=== PATIENT | male | born 1945 | race Hispanic/Latino ===

== ENCOUNTER → 2017-04-23 | Outpatient (CLI) | payer OTHER ==
[~2017-04-23] MED LIST: REGADENOSON 0.4 MG/5 ML PF SYG IVP ONE; REGADENOSON 0.4 MG/5 ML PF SYG IVP SCH
== END | disposition home or self-care (01) ==
LOC: SHCH 04-22 08:30
PROVIDERS: ATTEND Internal Medicine Cardiovascular Disease
DX: Z01.818 Encounter for other preprocedural examination (principal); R06.00 Dyspnea, unspecified; R11.0 Nausea
CPT/HCPCS: 78452; 93017; 96374; A9500 ×2; J2785

== ENCOUNTER → 2023-07-29 | Outpatient (CLI) | payer OTHER ==
[2023-07-29 12:41] LABS: CREATININE 1.7 mg/dL (0.5-1.3); POTASSIUM 3.8 mmol/L (3.5-5.1)
== END | disposition home or self-care (01) ==
LOC: LAB 08:57
PROVIDERS: ATTEND Internal Medicine Cardiovascular Disease
DX: I50.42 Chronic combined systolic (congestive) and diastolic (congestive) heart failure (principal)
CPT/HCPCS: 36415; 80048

== ENCOUNTER → 2023-08-19 | Outpatient (CLI) | payer OTHER ==
[2023-08-19] MEDS: REGADENOSON 0.4 MG/5 ML PF SYG IVP ONE (11:26)
== END | disposition home or self-care (01) ==
LOC: SHCH 09:03
PROVIDERS: ATTEND Internal Medicine Cardiovascular Disease
DX: I49.3 Ventricular premature depolarization (principal); I48.0 Paroxysmal atrial fibrillation; R00.0 Tachycardia, unspecified; I42.9 Cardiomyopathy, unspecified
CPT/HCPCS: 78452; 96374; 93017; J2785; A9500 ×2

== ENCOUNTER → 2023-09-07 | Outpatient (CLI) | payer OTHER | END | disposition home or self-care (01) | LOC: SHCH 11:06 | PROVIDERS: ATTEND Internal Medicine Cardiovascular Disease | DX: I48.0 Paroxysmal atrial fibrillation (principal); R00.0 Tachycardia, unspecified; I42.9 Cardiomyopathy, unspecified | CPT/HCPCS: 93306 ==

== ENCOUNTER 2024-01-02 08:10 | Day surgery (SDC) | payer OTHER ==
[2023-12-31 11:38] LABS: BASOPHILS # (AUTO) 0.06 K/uL (0.00-0.20); BASOPHILS % (AUTO) 0.7 % (0.0-5.0); EOSINOPHILS # (AUTO) 0.12 K/uL (0.00-0.70); EOSINOPHILS % (AUTO) 1.5 % (0.0-8.0); HEMATOCRIT 45.7 % (42-54); IMMATURE GRANULOCYTE ABSOLUTE 0.01 K/uL (0-1); LYMPHOCYTES # (AUTO) 2.6 K/uL (1.0-4.8); LYMPHOCYTES % (AUTO) 31.7 % (21.0-51.0); MEAN CORPUSCULAR HEMOGLOBIN 29.2 pg (27.0-33.0); MEAN CORPUSCULAR HGB CONC 33.5 g/dL (32.0-36.0); MEAN CORPUSCULAR VOLUME 87.2 fL (79-99); MONOCYTES # (AUTO) 0.6 K/uL (0.1-1.0); MONOCYTES % (AUTO) 7.3 % (3.0-13.0); NEUTROPHILS # (AUTO) 4.9 K/uL (1.8-7.7); NEUTROPHILS % (AUTO) 58.7 % (40.0-77.0); PLATELET COUNT (AUTO) 205 K/uL (130-400); RED BLOOD CELL COUNT(AUTO) 5.24 MIL/uL (4.50-6.20); RED CELL DISTRIBUTION WIDTH 14.1 % (11.0-15.5); WHITE BLOOD COUNT (AUTO) 8.3 K/uL (4.8-10.8)
[2023-12-31 11:46] LABS: CREATININE 1.5 mg/dL (0.5-1.3); POTASSIUM 4.4 mmol/L (3.5-5.1)
[2023-12-31 11:50] LABS: INR 1.08 (0.85-1.15); PROTHROMBIN TIME 11.6 SEC (9.6-11.6)
[2023-12-31 11:52] LABS: PARTIAL THROMBOPLASTIN TIME 27.4 SEC (26.3-35.5)
[2023-12-31 12:04] LABS: B-TYPE NATRIURETIC PEPTIDE 456 pg/mL (0-100)
[2023-12-31 12:09] VITALS: BP 142/86; PULSE 76; RESP 20; TEMP 98.2
[2023-12-31 12:11] LABS: APPEARANCE,URINE CLEAR (CLEAR); BILIRUBIN,URINE NEGATIVE (NEGATIVE); COLOR,URINE YELLOW (YELLOW); GLUCOSE, URINE (UA) 30 mg/dL (NEGATIVE); KETONES,URINE 5 mg/dL (NEGATIVE); LEUKOCYTE ESTERASE ,URINE NEGATIVE Leu/uL (NEGATIVE); NITRATE,URINE NEGATIVE (NEGATIVE); OCCULT BLOOD,URINE NEGATIVE (NEGATIVE); PROTEIN,URINE 100 mg/dL (NEGATIVE)
[2023-12-31 12:25] LABS: ADD UA MICROSCOPIC YES
[2023-12-31 12:31] LABS: MUCUS,URINE FEW LPF (None Seen); RBC,URINE 0-1 /HPF (0-1); SQUAMOUS EPITHELIAL CELL,UR RARE /HPF (0-2)
--- NOTE | 2023-12-31 12:39 | EKG ---
[facility] Test Date: 2023-12-31 Test Time: 12:07:10 Pat Name: ALVIN PHAM Department: [facility] Patient ID: [id number] Room: Gender: M [employer]phalt [employer]er: [id number] : 1945 Requested By: GILLES ALVAREZ Order Number: [id number] Reading MD: Azul Perez Measurements Intervals Gould Rate: 99 P: 0 NE: 0 QRS: 23 QRSD: 104 T: -80 QT: 375 QTc: 483 Interpretive Statements Atrial fibrillation Ventricular premature complex No previous ECG available for comparison Electronically Signed On 01-01-2024 05:14:41 BLOOD BANK ASSISTANT by Azul Perez Please click the below link to view image of tracing.
--- NOTE | 2023-12-31 12:42 | HMCIMG ---
CHEST 1VW REASON: PRE OP COMPARISON: None. FINDINGS: Single view of the chest was obtained. Lungs are clear. Heart size is normal. There is no pulmonary vascular congestion. Mediastinum and bony thorax appear unremarkable. IMPRESSION: 1. Normal single view chest x-ray.
--- NOTE | 2023-12-31 14:47 | NUR ---
REPORT INFORMED NIRAV BARNES NP PT LAST TOOK ELIQUIS ON 12/27 1899. OK TO PROCEED AND PT TO CONTINUE TO HOLD ELIQUIS. PT AWARE
--- NOTE | 2024-01-01 10:48 | NUR ---
RE: LABS REPORTED NA 146, BUN 17, CREAT 1.5 TO CHERELLE PENDLETON. RECEIVED ORDERS TO INSTRUCT PATIENT TO HYDRATE TODAY BEFORE PROCEDURE TOMORROW.
[2024-01-02] VITALS (10 sets, daily range): BP systolic 130–144; BP diastolic 82–102; PULSE 76–100; RESP 11–22; TEMP 96.6–97.3
[~2024-01-02] VITALS: Ht 170.2 cm; Wt 89.7 kg
[~2024-01-02 08:10] MED LIST changes: +APIX5TAB PO; +CHOL4POW4 PO; +GLIP10TA16 PO; +INSU3INS3 SQ; +METF-446 PO; +METO-409 PO; +NOVOLOG SQ; -REGADENOSON 0.4 MG/5 ML PF SYG IVP ONE; -REGADENOSON 0.4 MG/5 ML PF SYG IVP SCH; +SACU1TAB PO
[2024-01-02] MEDS: 0.9%NACL 1000ML 1,000 ML IV ONE (09:11)
[2024-01-02] MEDS ORDERED: IOHEXOL 350 MG/ML 100ML INFUS..BTL IV ONE (10:39)
[2024-01-02] MEDS ORDERED: IOHEXOL-350 50ML VIAL IV ONE (10:39)
[2024-01-02] MEDS ORDERED: MIDAZOLAM HCL 1 MG/ML 2ML VIAL ONE (10:39)
[2024-01-02] MEDS ORDERED: FENTanyl CITRate PF 50 MCG/1 ML 2ML VIAL ONE (10:39)
[2024-01-02] MEDS ORDERED: LIDOCAINE HCL 400MG/20ML VIAL ONE (10:39)
[2024-01-02] MEDS ORDERED: HEParin-NS 1,000 UNIT/500 ML 1,000 ML IV ONE (10:40)
[2024-01-02] MEDS ORDERED: HEParin 10,000 UNIT/10ML (1,000 UNIT/ML) VIAL ONE (10:40)
[2024-01-02] MEDS ORDERED: NITROGLYCERIN 50MG VIAL ONE (10:40)
[2024-01-02] MEDS ORDERED: metoPROLOL tartRATE 1 MG/ML 5ML VIAL IV ONE ×2 (11:10→11:31)
[2024-01-02] MEDS: 0.9%NACL 1000ML 1,000 ML IV SCH (11:57)
[2024-01-02] MEDS ORDERED: GLUCAGON 1MG KIT 1 MG ML IM PRN (12:30)
[2024-01-02] MEDS ORDERED: DEXTROSE 50%-WATER 50 ML DISP.SYRIN IV PRN (12:30)
--- NOTE | 2024-01-02 12:33 | PRN ---
DATE OF PROCEDURE: 01/02/2024 PROCEDURE PERFORMED: LEFT HEART CATHETERIZATION, LEFT VENTRICULOGRAM, LEFT AND RIGHT SELECTIVE CORONARY ANGIOGRAM, IFR OF THE LAD, RIGHT COMMON FEMORAL ANGIOGRAM, PERCLOSE SUTURE CLOSURE OF THE RIGHT COMMON FEMORAL ARTERY, AND CONSCIOUS SEDATION SNOW REMOVAL SUPERVISOR: GILLES ALVAREZ MD, [facility] INDICATION: MARKED DECLINE IN LV FUNCTION FROM AN LVEF OF 40-45% BY 2D ECHO DECEMBER 07, 2016 TO AN LVEF OF 25-30% BY 2D ECHO 09/07/2023. FIXED INFERIOR, INFEROLATERAL, AND INFEROAPICAL DEFECT BY LEXISCAN CARDIOLITE STRESS TEST 08/19/2023 WITH NO REVERSIBLE ISCHEMIA IDENTIFIED. PROCEDURE NOTE: After informed consent was obtained the patient was prepped and draped in the usual sterile fashion. A 6 Urdu arterial sheath was inserted in the right femoral artery using micropuncture technique with ultrasound guidance with a front wall, first pass puncture. This was performed after fluoroscopic identification of bony landmarks to facilitate a more accurate puncture of the right common femoral artery. The arterial sheath was aspirated and flushed. A 6 Urdu pigtail catheter was then advanced over a J-tipped guidewire to the ascending aorta and was prolapsed into the left ventricle. The catheter was aspirated and flushed and pressure measurements were obtained. A left ventriculogram was then performed in a 30 HALE projection. A pullback procedure was then performed, and this catheter was removed over a J-tipped guidewire. A 6F JL-4 was then advanced to the ascending aorta over a J-tipped guidewire, was aspirated and flushed, and was used for selective left coronary angiograms in multiple obliquities. A 6 Urdu JR-4 was advanced in a similar fashion to the ascending aorta over a J-tipped guidewire and was used for selective right coronary angiograms in multiple obliquities with findings as outlined below. An intermediate 60-70% eccentric proximal LAD stenosis just prior to the bifurcation with the diagonal one was noted of uncertain physiologic significance. IFR was performed with multiple readings of 0.99, 0.98, 0.99, and 1.0 were obtained with no significant drift. A right common femoral angiogram was performed to assess suitability for Perclose suture closure and the Perclose device was deployed in standard fashion. Perclose suture closure was successful without bleeding or hematoma. The patient tolerated the procedure well and was returned to the holding area in stable condition. FINDINGS: LEFT HEART HEMODYNAMICS: The LVEDP was 18 mm of mercury. No LV-gram was performed. There was no aortic valve gradient on pullback procedure. LEFT VENTRICULOGRAM: A left ventriculogram was not performed because of the presence of chronic renal insufficiency with serum creatinine of 1.5. A 2D echocardiogram 09/07/2023 demonstrated severe global hypokinesis, an LVEF of 25-30%, and stage III diastolic dysfunction. CORONARY ANGIOGRAM: LEFT MAIN: The left main had a 20% tubular ostial stenosis and a 30% tubular distal stenosis. There was no dampening or ventricularization of the pressure waveform. LEFT ANTERIOR DESCENDING: The left anterior descending had a 40% ostial and 60-70% proximal stenosis just prior to the bifurcation from a large diagonal branch. IFR determinations were 0.99, 0.98, 0.99, and 1.0. The ongoing mid and distal LAD were normal. The 1st diagonal branch had a 30% stenosis proximally. The 2nd diagonal was small and normal. There was a 99% stenosis on a tiny branch of the 1st diagonal branch. LEFT CIRCUMFLEX: The left circumflex was nondominant and normal. The OM1 had a 30% proximal stenosis in the OM2 was normal. RAMUS INTERMEDIATE BRANCH: There was no ramus intermediate branch. RIGHT CORONARY ARTERY: There was a 40% stenosis in the proximal RCA just prior to the 1st of two overlapping stents in the proximal to distal RCA. There were two overlapping widely patent 4.0 x 30 mm and 4.0 x 30 mm Medtronic Resolute drug-eluting stents from 07/11/2013 acute AR intervention. The distal RCA, PDA, and posterolateral branches were normal. 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 Chronic severe systolic and diastolic congestive heart failure, with grade 3 diastolic dysfunction noted on 2D echo 09/07/2023. Remote inferolateral AR 07/12/2023 with widely patent overlapping 4.0 x 30 mm and 4.0 x 30 mm Medtronic resolute integrity drug-eluting stents in the proximal to distal RCA. 60-70% eccentric proximal LAD stenosis with IFR of 0.99. RECOMMENDATION: Optimize medical therapy for CHF. Unfortunately the patient has been intolerant of Farxiga and spironolactone, consider a repeat trial of these medications. Advanced metoprolol succinate ER to 150 mg as the patient has had resting heart rates in the 90 to 100 beat per minute range in the phlebotomist medical lab assistant and at home per his report. Continue risk factor modification. The patient is not on statin therapy for unclear reasons and this will be introduced with rosuvastatin 20 mg daily. COMPLICATIONS OF PROCEDURE: None, the patient tolerated the procedure well and was returned to his room in stable condition. HEMOSTASIS: Perclose suture closure was successful without bleeding or hematoma. ESTIMATED BLOOD LOSS: 5 mL. CONTRAST TOTAL: 90 mL. GILLES ALVAREZ MD Jan 02, 2024 12:32
--- NOTE | 2024-01-02 15:00 | NUR ---
urinary: voided 300 cc dark yellow color urine per urinal without difficulty.
[2024-01-02] MEDS ORDERED: INSULIN humuLIN R 100 UNIT/ML 3ML SQ SCH (16:30)
== END 2024-01-02 15:45 | disposition home or self-care (01) ==
LOC: DAH 08:10
PROVIDERS: ATTEND Internal Medicine Cardiovascular Disease
DX: R94.39 Abnormal result of other cardiovascular function study (principal); I25.10 Atherosclerotic heart disease of native coronary artery without angina pectoris; I25.5 Ischemic cardiomyopathy; I49.3 Ventricular premature depolarization; I48.21 Permanent atrial fibrillation; E78.5 Hyperlipidemia, unspecified; I13.0 Hypertensive heart and chronic kidney disease with heart failure and stage 1 through stage 4 chronic kidney disease, or unspecified chronic kidney disease; E11.22 Type 2 diabetes mellitus with diabetic chronic kidney disease; I50.42 Chronic combined systolic (congestive) and diastolic (congestive) heart failure; N18.32 Chronic kidney disease, stage 3b; Z95.5 Presence of coronary angioplasty implant and graft; Z79.01 Long term (current) use of anticoagulants; Z79.4 Long term (current) use of insulin; Z79.899 Other long term (current) drug therapy
CPT/HCPCS: 80048; 83880; 85025; 85610; 85730; 81001; 36415; 71045; 93005; 93458; 93571; 82948 ×2; C1887; C1894 ×2; C1760; C1769; J3010; J3490 ×4; J7030; J1644 ×2; J2250; Q9967; A4215; A4222; A4221; A4663; A4216; A4606; Q9965 ×2; A4223 ×3; 96360; 96361; 99156; 99157

== ENCOUNTER → 2024-02-20 | Outpatient (CLI) | payer OTHER ==
[2024-02-20 18:12] LABS: CREATININE 1.6 mg/dL (0.5-1.3); POTASSIUM 4.4 mmol/L (3.5-5.1)
== END | disposition home or self-care (01) ==
LOC: LAB 13:33
PROVIDERS: ATTEND Internal Medicine Cardiovascular Disease
DX: I50.22 Chronic systolic (congestive) heart failure (principal)
CPT/HCPCS: 36415; 80048; 83880

== ENCOUNTER → 2024-03-27 | Outpatient (CLI) | payer OTHER ==
[2024-03-27 15:17] LABS: CREATININE 1.7 mg/dL (0.5-1.3); MAGNESIUM 1.8 mg/dL (1.80-2.40); POTASSIUM 4.3 mmol/L (3.5-5.1)
== END | disposition home or self-care (01) ==
LOC: LAB 14:35
PROVIDERS: ATTEND Internal Medicine Cardiovascular Disease
DX: I50.22 Chronic systolic (congestive) heart failure (principal)
CPT/HCPCS: 36415; 80048; 83735

== ENCOUNTER → 2024-05-01 | Outpatient (CLI) | payer OTHER ==
[2024-05-01 15:47] LABS: ALBUMIN 3.6 g/dL (3.5-5.0); BILIRUBIN,TOTAL 0.6 mg/dL (0.2-1.0); POTASSIUM 4.2 mmol/L (3.5-5.1); TOTAL PROTEIN, SERUM 7.2 g/dL (6.0-8.3)
== END | disposition home or self-care (01) ==
LOC: LAB 13:19
PROVIDERS: ATTEND Nurse Practitioner Acute Care
DX: I50.42 Chronic combined systolic (congestive) and diastolic (congestive) heart failure (principal); E11.59 Type 2 diabetes mellitus with other circulatory complications
CPT/HCPCS: 36415; 80053; 80061; 83880

== ENCOUNTER → 2024-05-19 | Outpatient (CLI) | payer OTHER ==
[2024-05-19 12:46] LABS: CREATININE 1.7 mg/dL (0.5-1.3); POTASSIUM 4.1 mmol/L (3.5-5.1)
== END | disposition home or self-care (01) ==
LOC: LAB 10:16
PROVIDERS: ATTEND Nurse Practitioner Acute Care
DX: I11.0 Hypertensive heart disease with heart failure (principal); I50.22 Chronic systolic (congestive) heart failure
CPT/HCPCS: 36415; 80048; 83880